=== PATIENT | female | born 1950 | race Caucasian/White ===

== ENCOUNTER → 2020-05-08 | Outpatient (CLI) | payer MEDICARE ==
[~2020-05-08] MED LIST: ALBU8.5H2 IH; ASP81TEC PO; BUDE6HFA IH; OMEP20CA6 PO; PRX20T PO; SMV20T PO; TIOT18CA IH
[2020-05-08 19:30] LABS: ABG BASE EXCESS 7.3 MMOL/L (-2.5-2.5); ABG OXYGEN SATURATION 99 % (94-100); ABG PCO2 50 MMHG (35-45); ABG PH 7.42 (7.37-7.43); ABG PO2 128 MMHG (79-93); ABG TCO2 33.8 MMOL/L (21.0-31.0); INSPIRED O2 4; VENTILATOR NO
== END ==
LOC: LAB 19:26
PROVIDERS: ATTEND Nurse Practitioner Family
DX: R06.02 Shortness of breath (principal)
CPT/HCPCS: 82805

== ENCOUNTER 2020-12-01 06:19 | Outpatient (CLI) | payer MEDICARE ==
[~2020-12-01] VITALS: Ht 152.4 cm; Wt 36.4 kg
[2020-12-01] MEDS ORDERED: ALB0.5V INH (16:21)
[2020-12-01] MEDS ORDERED: MONT10TA21 PO (16:21)
[2020-12-01] MEDS ORDERED: ACET600C PO (16:21)
[2020-12-01] MEDS ORDERED: ALPR0.25 PO (16:21)
[2020-12-01] MEDS ORDERED: GUAI600T43 PO (16:21)
== END 2020-12-02 10:13 | disposition home or self-care (01) ==
LOC: PREOP 06:19
PROVIDERS: ATTEND Specialist
DX: Z01.818 Encounter for other preprocedural examination (principal)

== ENCOUNTER 2020-12-03 11:25 | Day surgery (SDC) | payer MEDICARE ==
[~2020-12-03] VITALS: Ht 152 cm; Wt 36.4 kg
[~2020-12-03 11:25] MED LIST changes: +ACET600C PO; +ALB0.5V INH; +ALPR0.25 PO; +GUAI600T43 PO; +MONT10TA21 PO
--- NOTE | 2020-12-03 11:48 | Ophthalmologist Pre-Op Note ---
Pre-Operative Progress Note H&P Reviewed The H&P was reviewed, patient examined and no changes noted. Date H&P Reviewed: December 03, 2020 Time H&P Reviewed: 11:48 Pre-Op Dx Cataract, Right Eye JUMANA SHEPHERD MD December 03, 2020 11:48
[2020-12-03] MEDS ORDERED: TIMOLOL MALEATE 0.5% 5 ML (TIMOPTIC) BTL OU PRN (12:00)
[2020-12-03] MEDS ORDERED: acetaZOLAMIDE ER 500 MG CAP (DIAMOX SEQUELS) PO ONE (12:00)
[2020-12-03] MEDS ORDERED: LIDOCAINE PF 1% 2 ML VIAL IR PRN (12:00)
[2020-12-03] MEDS ORDERED: POVIDONE (BETADINE) OPHTH SOLN 5% 30 ML OP ONE (12:00)
[2020-12-03] MEDS ORDERED: MOXIFLOXACIN OPHTH SOLN 5 MG/ML 0.3 ML SYRINGE OP ONE (12:00)
[2020-12-03] MEDS: TETRACAINE 0.5% OPHTH SOLN 4 ML BTL (SINGLE DOSE ONLY) OU PRN ×4 (12:05→12:21)
[2020-12-03 12:09] VITALS: BP 114/75
[2020-12-03] MEDS: PHENYLEPHRINE 10% OPHTH (NEO-SYN) 5 ML BTL OU SCH ×3 (12:11→12:21)
[2020-12-03] MEDS: TROPICAMIDE 1% OPH SOLN (MYDRIACYL) 15 ML BTL OP SCH ×3 (12:12→12:21)
--- NOTE | 2020-12-03 13:10 | Ophthalmology Operative Report ---
Cataract removal/placement IOL PREOPERATIVE DIAGNOSIS: Cataract Right Eye POSTOPERATIVE DIAGNOSIS: Cataract Right Eye PROCEDURE: Cataract removal and placement of posterior chamber implant, right eye SURGEON: William Shepherd ANESTHESIA: Topical with sedation COMPLICATIONS: None ESTIMATED BLOOD LOSS: Minimal DESCRIPTION OF PROCEDURE: After proper informed consent was obtained, the patient, a 70 female, was taken to the Operating Room and the right eye was anesthetized with tetracaine. The right eye was then prepped and draped in the usual manner. A wire lid speculum was placed. A paracentesis was made at the left hand position. Preservative free lidocaine was injected into the anterior chamber followed by viscoelastic. A clear corneal incision was made in the temporal position. A capsulorrhexis was preformed and the central nuclear and cortical material were removed. The posterior capsule was polished and Isreal 24.5 AU00T0 IOL was placed into the capsular bag. The residual viscoelastic was aspirated and balanced saline solution was injected into the anterior chamber. Moxifloxacin was injected into the anterior chamber. The wound was checked and found to be water tight. The patient tolerated the procedure well without complications. WILLIAM SHEPHERD MD December 03, 2020 13:10
[2020-12-03 13:29] VITALS: BP 110/62
--- NOTE | 2020-12-05 12:48 | Anesthesia-General Post-Op ---
MAC Significant Intra-Op Events Notes post date entry from 12/03/20 at 1315 Patient Condition Mental Status/LOC: Same as Preop Cardiovascular: Satisfactory Nausea/Vomiting: Absent Respiratory: Satisfactory Pain: Controlled Complications: Absent Post Op Complications Complications None Follow Up Care/Instructions Patient Instructions None needed. Anesthesiology Discharge Order Discharge Order Patient is doing well, no complaints, stable vital signs, no apparent adverse anesthesia problems. No complications reported per nursing. BRENDA MELARA CRNA December 05, 2020 12:48
== END 2020-12-03 13:15 ==
LOC: SDC 11:25
PROVIDERS: ATTEND Specialist
DX: H25.11 Age-related nuclear cataract, right eye (principal); J44.9 Chronic obstructive pulmonary disease, unspecified; J06.9 Acute upper respiratory infection, unspecified; Z99.81 Dependence on supplemental oxygen; Z79.899 Other long term (current) drug therapy
CPT/HCPCS: 66984; V2632

== ENCOUNTER 2020-12-10 06:06 | Outpatient (CLI) | payer MEDICARE ==
[2020-12-14] MEDS ORDERED: BUDE10.26 IH (11:31)
[2020-12-14] MEDS ORDERED: IPRA3AMP31 IH (11:31)
[2020-12-14] MEDS ORDERED: PARO20TA5 PO (11:31)
[2020-12-14] MEDS ORDERED: RT-ALBUINH IH (11:31)
[2020-12-14] MEDS ORDERED: TIOT18CA2 IH (11:31)
== END 2020-12-14 11:34 | disposition home or self-care (01) ==
LOC: PREOP 06:06
PROVIDERS: ATTEND Specialist
DX: Z01.818 Encounter for other preprocedural examination (principal)

== ENCOUNTER 2020-12-17 09:00 | Day surgery (SDC) | payer MEDICARE ==
[~2020-12-17] VITALS: Ht 152 cm; Wt 36.4 kg
[~2020-12-17 09:00] MED LIST changes: +BUDE10.26 IH; +IPRA3AMP31 IH; +PARO20TA5 PO; +RT-ALBUINH IH; +TIOT18CA2 IH
[2020-12-17] MEDS ORDERED: MIDAZOLAM 2 MG/2 ML (VERSED) VIAL ONE (09:08)
[2020-12-17 09:10] VITALS: BP 135/76
[2020-12-17] MEDS: TETRACAINE 0.5% OPHTH SOLN 4 ML BTL (SINGLE DOSE ONLY) OU PRN ×4 (09:11→09:27)
[2020-12-17] MEDS ORDERED: POVIDONE (BETADINE) OPHTH SOLN 5% 30 ML OP ONE (09:15)
[2020-12-17] MEDS ORDERED: LIDOCAINE PF 1% 2 ML VIAL IR PRN (09:15)
[2020-12-17] MEDS ORDERED: MOXIFLOXACIN OPHTH SOLN 5 MG/ML 0.3 ML SYRINGE OP ONE (09:15)
[2020-12-17] MEDS ORDERED: TIMOLOL MALEATE 0.5% 5 ML (TIMOPTIC) BTL OU PRN (09:15)
[2020-12-17] MEDS: TROPICAMIDE 1% OPH SOLN (MYDRIACYL) 15 ML BTL OP SCH ×3 (09:17→09:27)
[2020-12-17] MEDS: PHENYLEPHRINE 10% OPHTH (NEO-SYN) 5 ML BTL OU SCH ×3 (09:17→09:27)
--- NOTE | 2020-12-17 10:04 | Ophthalmologist Pre-Op Note ---
Pre-Operative Progress Note H&P Reviewed The H&P was reviewed, patient examined and no changes noted. Date H&P Reviewed: Dec 17, 2020 Time H&P Reviewed: 10:04 Pre-Op Dx Cataract, Left Eye JUMANA SHEPHERD MD Dec 17, 2020 10:04
--- NOTE | 2020-12-17 10:29 | Ophthalmology Operative Report ---
Cataract removal/placement IOL PREOPERATIVE DIAGNOSIS: Cataract Left Eye POSTOPERATIVE DIAGNOSIS: Cataract Left Eye PROCEDURE: Cataract removal and placement of posterior chamber implant, left eye SURGEON: William Shepherd ANESTHESIA: Topical with sedation COMPLICATIONS: None ESTIMATED BLOOD LOSS: Minimal DESCRIPTION OF PROCEDURE: After proper informed consent was obtained, the patient, a 70 female, was taken to the Operating Room and the left eye was anesthetized with tetracaine. The left eye was then prepped and draped in the usual manner. A wire lid speculum was placed. A paracentesis was made at the left hand position. Preservative free lidocaine was injected into the anterior chamber followed by viscoelastic. A clear corneal incision was made in the temporal position. A capsulorrhexis was preformed and the central nuclear and cortical material were removed. The posterior capsule was polished and an Isreal 25.0 AU00T0 was placed into the capsular bag. The residual viscoelastic was aspirated and balanced saline solution was injected into the anterior chamber. Moxifloxacin was injected into the anterior chamber. The wound was checked and found to be water tight. The patient tolerated the procedure well without complications. WILLIAM SHEPHERD MD Dec 17, 2020 10:29
[2020-12-17] MEDS ORDERED: acetaZOLAMIDE ER 500 MG CAP (DIAMOX SEQUELS) PO ONE (10:30)
[2020-12-17 10:40] VITALS: BP 131/74
--- NOTE | 2020-12-17 13:58 | Anesthesia-General Post-Op ---
MAC Patient Condition Mental Status/LOC: Same as Preop Cardiovascular: Satisfactory Nausea/Vomiting: Absent Respiratory: Satisfactory Pain: Controlled Complications: Absent Post Op Complications Complications None Follow Up Care/Instructions Patient Instructions None needed. Anesthesiology Discharge Order Discharge Order Patient is doing well, no complaints, stable vital signs, no apparent adverse anesthesia problems. No complications reported per nursing. MATT ARANGO CRNA Dec 17, 2020 13:58
== END 2020-12-17 10:40 | disposition home or self-care (01) ==
LOC: SDC 09:00
PROVIDERS: ATTEND Specialist
DX: H25.12 Age-related nuclear cataract, left eye (principal); J44.9 Chronic obstructive pulmonary disease, unspecified; F17.200 Nicotine dependence, unspecified, uncomplicated; Z79.899 Other long term (current) drug therapy
CPT/HCPCS: 66984; V2632